=== PATIENT | male | born 1955 | race African-American/Black ===

== ENCOUNTER 2024-04-24 18:34 | Emergency (ER) | payer MEDICAID, MEDICARE ==
[~2024-04-24] VITALS: Ht 182.9 cm; Wt 75.0 kg
[~2024-04-24 18:34] MED LIST: [UNRECOGNIZED DRUG - OTHER]
[2024-04-24 18:39] VITALS: BP 150/75; PULSE 119; RESP 18; O2SAT 98
[2024-04-24] MEDS ORDERED: ACETAMINOPHEN 325MG TABLET PO NR (19:43)
[2024-04-24 20:17] LABS: BASOPHILS % 0.5 % (0.0-2.0); EOSINOPHILS % 1.1 % (0.0-5.0); HEMATOCRIT. 36.6 % (42.0-52.0); HEMOGLOBIN. 12.1 g/dL (14.0-18.0); LYMPHOCYTES % 19.2 % (20.0-50.0); MEAN CORPUSCULAR HEMOGLOBIN 31.6 pg (28.0-32.0); MEAN CORPUSCULAR HGB CONC 33.2 g/dL (31.0-37.0); MEAN CORPUSCULAR VOLUME 95.4 fL (80.0-94.0); MEAN PLATELET VOLUME 8.8 fl (7.4-10.4); MONOCYTES % 7.2 % (2.0-8.0); PLATELET 197 x1000/uL (130-400); RED BLOOD CELL COUNT 3.84 mill/uL (4.7-6.1); WHITE BLOOD COUNT 8.2 x1000/uL (4.5-11.0)
[2024-04-24 20:18] LABS: CHLORIDE 100 mEq/L (98-107); POTASSIUM 4.3 mEq/L (3.5-5.1); SODIUM 141 mEq/L (136-145)
[2024-04-24 20:20] LABS: CALCIUM 8.8 mg/dL (8.7-10.4); CARBON DIOXIDE 28 mEq/L (21-32)
[2024-04-24 20:22] LABS: PROTHROMBIN TIME 10.9 sec (9.6-11.0)
[2024-04-24 20:25] LABS: GLUCOSE 184 mg/dL (70-105); UREA NITROGEN BLOOD 48 mg/dL (9-23)
[2024-04-24 20:27] LABS: ALANINE AMINOTRANSFERASE 41 IU/L (10-49); ALBUMIN 4.2 g/dL (3.2-4.8); ASPARTATE AMINOTRANSFERASE 79 IU/L (<34); BILIRUBIN DIRECT 0.2 mg/dL (<=3.0); BILIRUBIN TOTAL 0.6 mg/dL (0.1-1.0); PROTEIN TOTAL 7.8 g/dL (6.0-8.3)
[2024-04-24 20:36] LABS: TROPONIN I HIGH SENSITIVITY 308 ng/L (3.0-53)
[2024-04-24 20:37] LABS: CREATININE 9.1 mg/dL (0.6-1.3)
[2024-04-24] MEDS ORDERED: P20 MT (20:47)
[2024-04-24] MEDS ORDERED: FAMO-134 PO (20:47)
== END 2024-04-24 20:05 | disposition left against medical advice (07) ==
LOC: ER 18:34
DX: R10.9 Unspecified abdominal pain (principal)
CPT/HCPCS: 36415; 71045; 80048; 80076; 84484; 85025; 99284